=== PATIENT | female | born 1995 | race Caucasian/White ===

== ENCOUNTER 2024-07-28 17:22 | Emergency (ER) | payer OTHER, SELFPAY ==
[2024-07-28 17:25] VITALS: BP 140/92
--- NOTE | 2024-07-28 17:43 | ED.GENMED ---
History of Present Illness
General
Chief Complaint: Allergic Reaction
Source: patient
Exam Limitations: none
Time Seen by Provider: 07/28/24 17:35
History of Present Illness
History of Present Illness:
29yoF with a history of seasonal allergies on monthly injections presenting with her significant other for evaluation of an allergic reaction that began about 1-2 hours ago. Patient was at a brewery outside this afternoon and was drinking a citrus
beer and eating a soft pretzel with several dipping sauces. She started to become nauseous. She went to the bathroom and noticed that her face/chest appeared red and that her skin was itchy. Her tongue started to feel thick so she decided to come
to the ED. She denies any vomiting, diarrhea, shortness of breath, dysphagia. She denies any known allergies other than seasonal allergies.
Phy Exam
General Physical Exam
General Presentation: well appearing and no apparent distress
General age: appears stated age
General Skin: warm and dry
General Habitus: normal
General Mental: alert
ENT Exam
ENT Exam: normocephalic and other (No oropharyngeal swelling. Normal phonation. Tolerating oral secretions without difficulty. )
Cardiovascular Exam
Cardiovascular Exam: regular rate/rhythm
Pulmonary Exam
Pulmonary Exam: lungs clear, no respiratory distress, no rales, no crackles and no rhonchi
Neurological Exam
Neurological Exam: alert
Reading Coma Scale
Eye Opening: Spontaneous
Verbal Response: Oriented
Motor Response: Obeys Commands
GCS Total Score: 15
Skin Exam
Skin Exam: warm/dry and other (Facial erythema/flushing noted with urticaria on trunk)
Psychiatric Exam
Psychiatric Exam: normal mood/affect
Course
Orders/Labs/Results
Orders:
Orders
07/28/24 17:42
0.9% Sodium Chloride 1000 ml [Nss] 1,000 ml IV BOLUS
Dexamethasone Sod Phosphate [Decadron] 10 mg IV NOW STA
Diphenhydramine [Benadryl] 50 mg IV NOW STA
Famotidine [Pepcid] 20 mg IV NOW STA
07/28/24 17:43
Test Result ONCE
07/28/24 18:01
HCG, Serum Qualitative Screen Urgent
Vital Signs
Initial and Last Documented VS:
Initial Vital Signs
Temp Pulse Resp BP Pulse Ox
98.5 F 98 18 140/92 98
07/28/24 17:25 07/28/24 17:25 07/28/24 17:25 07/28/24 17:25 07/28/24 17:25
Last Documented Vital Signs
Temp Pulse Resp BP Pulse Ox
98.5 F 60 17 117/68 100
07/28/24 17:25 07/28/24 19:15 07/28/24 19:15 07/28/24 19:00 07/28/24 19:15
MDM/Problems Addressed
Differential Diagnosis Includes:
29yoF here with an acute allergic reaction. Was at a brewery today while drinking a beer and eating a pretzel. Started to become nauseous followed by skin itching/redness. No dysphagia or SOB. VSS. She is well-appearing in no acute distress.
Facial erythema and flushing noted with urticarial lesions on the chest wall. No angioedema. Lungs clear to auscultation and respirations nonlabored. No clinical evidence of anaphylaxis.
Initial ED plan: IV Benadryl, Pepcid, Decadron, and fluid bolus. Indication for epinephrine at this time.
*Critical Care Note
Total Time (30-74mins, 75-104mins- exclusive of procedures): Not Applicable
Update Note
Update Note:
Patient reassessed after medications and symptoms have completely resolved. Vitals remained stable. Patient stable for discharge. Advised Benadryl every 6 hours as needed. She was instructed to follow-up with her lean facilitator whom she sees monthly.
ED return precautions discussed. Patient in agreement with plan and she was discharged in stable condition.
ED Attending Note
-
Portions of this chart may have been created with voice recognition software.� Occasional wrong word or��sound alike� substitutions may have occurred due to the inherent limitations of voice recognition software.
Discharge Plan
Departure
Patient Disposition: Home (Routine Discharge)
Date of Disposition: 07/28/24
Time of Disposition: 19:33
Patient with high blood pressure during this ER visit?: No
Discharge Problem:
Acute allergic reaction
Instructions: Allergic reaction - ED discharge instructions
Referrals:
Delfino Espinoza MD [Family Provider] -
Activity Restrictions/Additional Instructions:
Take Benadryl 25mg every 6 hours as needed for hives/itching.
Please follow-up with your lean facilitator and family doctor. Return to the ER with any worsening symptoms or trouble breathing.
Interventions
Interventions:
*Risk Screen - Suicide Last Done: 07/28/24 17:25
*General Assessment Last Done: 07/28/24 17:25
*Neglect/Abuse Screening Last Done: 07/28/24 18:03
*ED- Fall Risk Assessment Last Done: 07/28/24 17:25
*ED COVID-19 Vaccine History Last Done: 07/28/24 17:25
*Nursing Disposition Last Done: 07/28/24 19:49
ED- Cardiac Assessment Last Done: 07/28/24 18:03
ED- Pulmonary Assessment Last Done: 07/28/24 18:03
ED-Skin Assessment Last Done: 07/28/24 18:03
Discharge Date and Time
Discharge Date/Time: 07/28/24 19:50
Print Language: PORTUGUESE
[2024-07-28 17:47] VITALS: BP 136/83
[2024-07-28] MEDS: PEPCID 20 MG IV (17:52)
[2024-07-28] MEDS: BENADRYL 50 MG IV (17:52)
[2024-07-28] MEDS: NSS 1000 IV (17:52)
[2024-07-28] MEDS: DECADRON 10 MG IV (17:52)
[2024-07-28 18:00] VITALS: BP 132/86
[2024-07-28 18:23] LABS: HCG, Serum Qualitative Screen Negative
[2024-07-28 19:00] VITALS: BP 117/68
== END 2024-07-28 19:50 | disposition home or self-care (01) ==
LOC: EMR 17:22
PROVIDERS: Physician Assistant; EMERGENCY PHYSICIAN Emergency Medicine; FAMILY PHYSICIAN Family Medicine
DX: T78.40XA Allergy, unspecified, initial encounter (principal); Y92.9 Unspecified place or not applicable
CPT/HCPCS: 99282; 96374; 96375; 96361; 84703